=== PATIENT | male | born 1980 | race Caucasian/White ===

== ENCOUNTER 2024-10-16 11:50 | Emergency (ER) | payer BC, SELFPAY ==
[2024-10-16 12:03] VITALS: BP 147/93
--- NOTE | 2024-10-16 14:41 | ED.GENMED ---
History of Present Illness
General
Chief Complaint: DVT/Possible Blood Clot
Source: patient
Exam Limitations: none
Time Seen by Provider: 10/16/24 13:39
History of Present Illness
History of Present Illness:
44-year-old male presents complaining of several days worth of erythema and slightly painful lumps over the medial left thigh. He has a history of saphenous vein ablation and is due for vein stripping in the near future. He denies chest pain or
shortness of breath. No prior history of DVT. He is not anticoagulated. He is healthy otherwise. No fevers. No other complaints at this time
Past History
Past History
ED Past Medical History: Asthma and Other (Diverticulitis, varicose veins)
ED Past Surgical History: Appendectomy
Social History
Tobacco: Non-smoker
Phy Exam
Physical Exam
Physical Exam:
General: Well-appearing male no acute respiratory distress
HEENT: Normocephalic atraumatic
Skin: Subtle erythema noted to the medial left thigh
Vascular: Saphenous vein is visible in a varicose fashion about the left leg. The proximal area has pea-sized nodules noted subcutaneously. This is slightly tender there is no edema
Course
Orders/Labs/Results
Orders:
Orders
10/16/24 12:05
US Legs, Left [US Periph Venous LOWER Ext LT] Urgent
Comment:
Reason For Exam: swelling
Vital Signs
Initial and Last Documented VS:
Initial Vital Signs
Temp Pulse Resp BP Pulse Ox
98.2 F 58 16 147/93 98
10/16/24 12:10/16/24 12:03 10/16/24 12:03 10/16/24 12:03 10/16/24 12:03
Last Documented Vital Signs
Temp Pulse Resp BP Pulse Ox
98.2 F 58 16 147/93 98
10/16/24 12:03 10/16/24 12:03 10/16/24 12:03 10/16/24 12:03 10/16/24 12:03
MDM/Problems Addressed
Differential Diagnosis Includes:
Patient concern for possible DVT. Ultrasound of the left leg was ordered which demonstrates no evidence of DVT. I suspect possible phlebitis of a branch of the saphenous vein and medial thigh. Recommend warm compresses and anti-inflammatories.
He will follow-up with his vein specialist for further evaluation
*Pulse Oximetry
SaO2: 98
Oxygen Mode of Delivery: Room air
Patient hypoxic: no
*Critical Care Note
Total Time (30-74mins, 75-104mins- exclusive of procedures): Not Applicable
ED Attending Note
-
Portions of this chart may have been created with voice recognition software.� Occasional wrong word or��sound alike� substitutions may have occurred due to the inherent limitations of voice recognition software.
Discharge Plan
Departure
Patient Disposition: Home (Routine Discharge)
Date of Disposition: 10/16/24
Time of Disposition: 14:45
Patient with high blood pressure during this ER visit?: No
Discharge Problem:
Phlebitis
Instructions: Superficial vein phlebitis and thrombosis
Referrals:
UNKNOWN - PT DOES,NOT KNOW [Family Provider]
Activity Restrictions/Additional Instructions:
You may apply warm compresses. You can use anti-inflammatories for pain. Follow-up with your vein specialist for further evaluation
Interventions
Interventions:
*Risk Screen - Suicide Last Done: 10/16/24 12:03
*Neglect/Abuse Screening Last Done: 10/16/24 12:03
Discharge Date and Time
Print Language: MALAWIAN
[2024-10-16 15:03] VITALS: BP 138/83
== END 2024-10-16 15:11 | disposition home or self-care (01) ==
LOC: EMR 11:50
PROVIDERS: EMERGENCY PHYSICIAN Emergency Medicine; FAMILY PHYSICIAN Family Medicine
DX: I80.3 Phlebitis and thrombophlebitis of lower extremities, unspecified (principal); J45.909 Unspecified asthma, uncomplicated
CPT/HCPCS: 99284; 93971